=== PATIENT | female | born 1995 | race Caucasian/White ===

== ENCOUNTER 2018-12-19 09:32 | Emergency (ER) | payer OTHER ==
[2018-12-19] MEDS ORDERED: TDAP ADULT 0.5 ML INJ (BOOSTRIX) IM ONE (09:48)
[2018-12-19] MEDS ORDERED: AMOXICILLIN/CLAVULANATE POT 875/125 MG TAB PO ONE (09:48)
[2018-12-19 09:49] VITALS: BP 139/88
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
== END 2018-12-19 10:11 | disposition home or self-care (01) ==
LOC: CED 09:32
DX: S70.922A Unspecified superficial injury of left thigh, initial encounter (principal); Y04.1XXA Assault by human bite, initial encounter; Y93.F9 Activity, other caregiving; Y99.0 Civilian activity done for income or pay
CPT/HCPCS: 99283-ER